=== PATIENT | female | born 1960 | race African-American/Black ===

== ENCOUNTER 2017-03-28 16:10 | Emergency (ER) | payer MEDICARE, OTHER ==
[~2017-03-28] VITALS: Ht 160 cm; Wt 123.0 kg
[2017-03-28 16:15] VITALS: PULSE 73; RESP 20; TEMP 98.2; O2SAT 100
--- NOTE | 2017-03-28 16:23 | PD ---
HPI Chief Complaint: Respiratory Distress Time Seen by Provider: 16:20 Travel History International Travel<30 days: No Contact w/Intl Traveler<30days: No Traveled to known affect area: No History of Present Illness HPI 56-year-old female with a history of panic attacks presents to emergency department with shortness of breath and left midsternal heaviness since this morning. Patient states that she received some news that her grandson has cancer and began having these symptoms. Patient describes her chest discomfort is heavy, nonradiating and moderate. Says she had 1 episode of nonbloody vomiting this morning but does not currently feel nauseous. Denies fever or chills. Denies history of cardiac issues. Denies abdominal pain. Says she took her BuSpar after the onset of symptoms which did not help her and is due to follow up with her primary care physician for her anxiety. Patient is not diabetic, denies hyperlipidemia. PFSH Social History Tobacco Use: No Allergies-Medications (Allergen,Severity, Reaction): Coded Allergies: red dye (Verified Allergy, Unknown, 03/28/17) Reported Meds & Prescriptions Reported Meds & Active Scripts Active Hydroxyzine HCl 50 Mg Tab 50 Mg PO TID 7 Days Reported Citalopram (Citalopram Hydrobromide) 10 Mg Tab Unknown Dose PO DAILY Prilosec (Omeprazole Magnesium) 20 Mg Tab 20 Mg PO DAILY Clonidine (Clonidine HCl) 0.1 Mg Tab Unknown Dose PO BID Buspirone (Buspirone HCl) 10 Mg Tab 10 Mg PO DAILY Buspirone (Buspirone HCl) 10 Mg Tab 20 Mg PO BID Review of Systems Except as stated in HPI: all other systems reviewed are Neg Physical Exam Narrative GENERAL: Well developed well nourished in mild distress, anxious SKIN: Focused skin assessment warm/dry. HEAD: Atraumatic. Normocephalic. EYES: Pupils equal and round. No scleral icterus. No injection or drainage. ENT: No nasal bleeding or discharge. Mucous membranes pink and moist. NECK: Trachea midline. No JVD. CARDIOVASCULAR: Regular rate and rhythm. No murmur appreciated. RESPIRATORY: No accessory muscle use. Clear to auscultation. Breath sounds equal bilaterally. GASTROINTESTINAL: Abdomen soft, non-tender, nondistended. MUSCULOSKELETAL: No obvious deformities. No clubbing. No cyanosis. No edema. NEUROLOGICAL: Awake and alert. No obvious cranial nerve deficits. Motor grossly within normal limits. Normal speech. PSYCHIATRIC: Appropriate mood and affect; insight and judgment normal. Data Data Last Documented VS Vital Signs Date Time Temp Pulse Resp B/P (MAP) Pulse Ox O2 Delivery O2 Flow Rate FiO2 03/28/17 16:15 98.2 73 20 100 Room Air Orders Orders Complete Blood Count With Diff (03/28/17 16:19) Comprehensive Metabolic Panel (03/28/17 16:19) Act Partial Throm Time (Ptt) (03/28/17 16:19) Prothrombin Time / Inr (Pt) (03/28/17 16:19) Magnesium (Mg) (03/28/17 16:19) Ckmb (Isoenzyme) Profile (03/28/17 16:19) Troponin I (03/28/17 16:19) Iv Access Insert/Monitor (03/28/17 16:19) Electrocardiogram (03/28/17 16:19) Ecg Monitoring (03/28/17 16:19) Oximetry (03/28/17 16:19) Chest, Single Ap (03/28/17 16:19) Electrocardiogram (03/28/17 ) Aspirin Chew (Aspirin Chew) (03/28/17 16:30) CKMB (03/28/17 16:30) CKMB% (03/28/17 16:30) Lorazepam Inj (Ativan Inj) (03/28/17 17:30) Ed Discharge Order (03/28/17 18:16) Labs Laboratory Tests Test 03/28/17 16:30 White Blood Count 6.2 TH/MM3 Red Blood Count 4.09 MIL/MM3 Hemoglobin 12.3 GM/DL Hematocrit 36.6 % Mean Corpuscular Volume 89.3 FL Mean Corpuscular Hemoglobin 30.0 PG Mean Corpuscular Hemoglobin Concent 33.6 % Red Cell Distribution Width 14.4 % Platelet Count 348 TH/MM3 Mean Platelet Volume 6.2 FL Neutrophils (%) (Auto) 43.2 % Lymphocytes (%) (Auto) 42.2 % Monocytes (%) (Auto) 12.1 % Eosinophils (%) (Auto) 2.0 % Basophils (%) (Auto) 0.5 % Neutrophils # (Auto) 2.7 TH/MM3 Lymphocytes # (Auto) 2.6 TH/MM3 Monocytes # (Auto) 0.7 TH/MM3 Eosinophils # (Auto) 0.1 TH/MM3 Basophils # (Auto) 0.0 TH/MM3 CBC Comment DIFF FINAL Differential Comment Prothrombin Time 9.7 SEC Prothromb Time International Ratio 1.0 RATIO Activated Partial Thromboplast Time 27.4 SEC Blood Urea Nitrogen 10 MG/DL Creatinine 0.75 MG/DL Random Glucose 95 MG/DL Total Protein 7.9 GM/DL Albumin 3.5 GM/DL Calcium Level 9.3 MG/DL Magnesium Level 1.8 MG/DL Alkaline Phosphatase 110 U/L Aspartate Amino Transf (AST/SGOT) 23 U/L Alanine Aminotransferase (ALT/SGPT) 28 U/L Total Bilirubin 0.4 MG/DL Sodium Level 130 MEQ/L Potassium Level 3.9 MEQ/L Chloride Level 95 MEQ/L Carbon Dioxide Level 28.1 MEQ/L Anion Gap 7 MEQ/L Estimat Glomerular Filtration Rate 96 ML/MIN Total Creatine Kinase 124 U/L Creatine Kinase MB 0.9 NG/ML Troponin I LESS THAN 0.02 NG/ML MDM Medical Decision Making Medical Screen Exam Complete: Yes Emergency Medical Condition: Yes Differential Diagnosis panic attack, anxiety, AMI, atypical chest pain Narrative Course 56-year-old female with a history of panic attacks presents to emergency department with shortness of breath and left midsternal heaviness since this morning. Patient states that she received some news that her grandson has cancer and began having these symptoms. Patient describes her chest discomfort is heavy, nonradiating and moderate. Says she had 1 episode of nonbloody vomiting this morning but does not currently feel nauseous. Denies fever or chills. Denies history of cardiac issues. Denies abdominal pain. Says she took her BuSpar after the onset of symptoms which did not help her and is due to follow up with her primary care physician for her anxiety. Patient is not diabetic, denies hyperlipidemia. After further discussion, patient states that she gets panic attacks but this one has been more intense. Normally her medication resolves her panic attacks but this one has not. Patient states that her 55y old sister had multiple strokes recently but has also had multiple back surgeries which may have contributed to this condition. Patient does not smoke. Vital signs stable. EKG sinus arrhythmia without ST depressions or elevation. Laboratory Tests Test 03/28/17 16:30 White Blood Count 6.2 TH/MM3 Red Blood Count 4.09 MIL/MM3 Hemoglobin 12.3 GM/DL Hematocrit 36.6 % Mean Corpuscular Volume 89.3 FL Mean Corpuscular Hemoglobin 30.0 PG Mean Corpuscular Hemoglobin Concent 33.6 % Red Cell Distribution Width 14.4 % Platelet Count 348 TH/MM3 Mean Platelet Volume 6.2 FL Neutrophils (%) (Auto) 43.2 % Lymphocytes (%) (Auto) 42.2 % Monocytes (%) (Auto) 12.1 % Eosinophils (%) (Auto) 2.0 % Basophils (%) (Auto) 0.5 % Neutrophils # (Auto) 2.7 TH/MM3 Lymphocytes # (Auto) 2.6 TH/MM3 Monocytes # (Auto) 0.7 TH/MM3 Eosinophils # (Auto) 0.1 TH/MM3 Basophils # (Auto) 0.0 TH/MM3 CBC Comment DIFF FINAL Differential Comment Prothrombin Time 9.7 SEC Prothromb Time International Ratio 1.0 RATIO Activated Partial Thromboplast Time 27.4 SEC Blood Urea Nitrogen 10 MG/DL Creatinine 0.75 MG/DL Random Glucose 95 MG/DL Total Protein 7.9 GM/DL Albumin 3.5 GM/DL Calcium Level 9.3 MG/DL Magnesium Level 1.8 MG/DL Alkaline Phosphatase 110 U/L Aspartate Amino Transf (AST/SGOT) 23 U/L Alanine Aminotransferase (ALT/SGPT) 28 U/L Total Bilirubin 0.4 MG/DL Sodium Level 130 MEQ/L Potassium Level 3.9 MEQ/L Chloride Level 95 MEQ/L Carbon Dioxide Level 28.1 MEQ/L Anion Gap 7 MEQ/L Estimat Glomerular Filtration Rate 96 ML/MIN Total Creatine Kinase 124 U/L Creatine Kinase MB 0.9 NG/ML Troponin I LESS THAN 0.02 NG/ML Ativan 2mg administered with significant improvement in symptoms. HEART Score= 2 for HTN and age 56. Patient continues to admit that she has had significant life changes recently to include the most recent finding of cancer of her grandchild. She moved from [place] last than 1 year ago and has had multiple life changes since. I discussed being [facility] but pt insisted it was not her heart and thought it was her anxiety. Says she needs to follow up with her PCP and will call for an appointment this week. She will be discharged with hydroxyzine PRN and asked her to consider follow up with a therapist for her increased anxiety. I explained the importance of returning to the ED for worsening or persistent symptoms. She states understanding and will comply. Diagnosis Primary Impression: Panic attack as reaction to stress Referrals: Primary Care Physician Patient Instructions: Anxiety (ED), General Instructions Additional Instructions: Follow up with your primary care physician within 2-3 days. If your symptoms persist or worsen, return to the emergency department. Take medication as prescribed. Scripts Hydroxyzine HCl (Hydroxyzine HCl) 50 Mg Tab 50 MG PO TID for Anxiety for 7 Days, TAB 0 Refills Prov: Layla Camargo 03/28/17 Disposition: 01 DISCHARGE HOME Condition: Stable Layla Camargo Mar 28, 2017 16:23
[2017-03-28] MEDS ORDERED: ASPIRIN 81 MG CHEW TAB CHEW ONE (16:30)
[2017-03-28 16:42] LABS: AUTOMATED NEUTROPHIL # 2.7 TH/MM3 (1.8-7.7); BASOPHIL % 0.5 % (0.0-2.0); EOSINOPHIL # 0.1 TH/MM3 (0-0.4); HEMATOCRIT 36.6 % (35.0-46.0); HEMOGLOBIN 12.3 GM/DL (11.6-15.3); LYMPH % 42.2 % (9.0-44.0); LYMPHOCYTE # 2.6 TH/MM3 (1.0-4.8); MEAN CELL VOLUME 89.3 FL (80.0-100.0); MEAN CORPUSCULAR HGB CONC 33.6 % (32.0-36.0); MEAN PLATELET VOLUME 6.2 FL (7.0-11.0); MONO % 12.1 % (0.0-8.0); MONOCYTE # 0.7 TH/MM3 (0-0.9); NEUT % 43.2 % (16.0-70.0); PLATELET COUNT 348 TH/MM3 (150-450); RED BLOOD COUNT 4.09 MIL/MM3 (4.00-5.30); RED CELL DISTRIBUTION WIDTH 14.4 % (11.6-17.2); WHITE BLOOD COUNT 6.2 TH/MM3 (4.0-11.0)
--- NOTE | 2017-03-28 16:52 | RADRPT ---
EXAM DATE/TIME: 03/28/2017 16:27 [facility] COMPARISON: No previous studies available for comparison. INDICATIONS : Shortness of breath and pressure in chest for one day. MEDICAL HISTORY : Chronic obstructive pulmonary disease. Hypertension SURGICAL HISTORY : Appendectomy. ENCOUNTER: Initial ACUITY: 1 day PAIN SCORE: 0/10 LOCATION: Bilateral chest FINDINGS: The lungs are clear without infiltrate, nodule, or mass. There is no appreciable pleural effusion fo r technique. Heart and mediastinum are unremarkable. CONCLUSION: No acute cardiopulmonary disease. Adalberto Kuo MD on March 28, 2017 at 16:49 Board Certified Radiologist. This report was verified electronically.
[2017-03-28 16:54] LABS: PROTHROMBIN TIME - PATIENT 9.7 SEC (9.8-11.6)
[2017-03-28 17:03] LABS: ALBUMIN 3.5 GM/DL (3.4-5.0); AST (GOT) 23 U/L (15-37); BICARBONATE 28.1 MEQ/L (21.0-32.0); BLOOD UREA NITROGEN 10 MG/DL (7-18); CALCIUM 9.3 MG/DL (8.5-10.1); CHLORIDE 95 MEQ/L (98-107); CREATININE 0.75 MG/DL (0.50-1.00); GLOMERULAR FILTRATION RATE 96 ML/MIN (>89); GLUCOSE,RANDOM 95 MG/DL (74-106); MAGNESIUM 1.8 MG/DL (1.5-2.5); SODIUM (NA) 130 MEQ/L (136-145)
[2017-03-28 17:04] LABS: ALT (GPT) 28 U/L (10-53)
[2017-03-28 17:08] LABS: ALKALINE PHOSPHATASE 110 U/L (45-117); TOTAL BILIRUBIN ADULT 0.4 MG/DL (0.2-1.0); TOTAL PROTEIN 7.9 GM/DL (6.4-8.2); TROPONIN I LESS THAN 0.02 NG/ML (0.02-0.05)
[2017-03-28] MEDS ORDERED: CLON0.1T PO (17:09)
[2017-03-28] MEDS ORDERED: BUSP10TA PO ×2 (17:09)
[2017-03-28] MEDS ORDERED: PRIL20TA2 PO (17:09)
[2017-03-28] MEDS ORDERED: CITA10TA4 PO (17:09)
[2017-03-28] MEDS ORDERED: LORazepam 2 MG/ML VIAL IV PUSH ONE (17:30)
[2017-03-28] MEDS ORDERED: HYDR50TA94 PO (18:12)
--- NOTE | 2017-03-29 16:49 | EKG ---
Date Performed: 03/28/2017 Time Performed: 16:19:39 PTAGE: 56 years EKG: Sinus rhythm WITH SINUS ARRHYTHMIA INFERIOR MYOCARDIAL INFARCTION ABNORMAL ECG NO PREVIOUS TRACING DOCTOR: Janell Cherry Interpretating Date/Time 03/29/2017 16:48:46
== END 2017-03-28 18:25 | disposition home or self-care (01) ==
LOC: NEPE 16:10
DX: F43.0 Acute stress reaction (principal); R06.02 Shortness of breath; R07.89 Other chest pain; R11.10 Vomiting, unspecified; I49.9 Cardiac arrhythmia, unspecified; R94.31 Abnormal electrocardiogram [ECG] [EKG]; Z79.899 Other long term (current) drug therapy
CPT/HCPCS: 71045; 80053; 82550; 82552; 83735; 84484; 85025; 85610; 85730; 93005; 96374; 99285; J2060